=== PATIENT | female | born 2000 | race Hispanic/Latino ===

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

== ENCOUNTER 2023-04-04 09:09 | Day surgery (SDC) | payer MEDICAID ==
[2023-04-04] MEDS ORDERED: Acetaminophen 500 MG TAB ONE (09:45)
[2023-04-04] MEDS ORDERED: Iron Sucrose Complex 500 MG in Sodium Chloride 0.9% 250 ML 250 ML IVPB SCH (09:45)
[2023-04-04] MEDS ORDERED: Acetaminophen 500 MG TAB PO SCH (09:45)
== END 2023-04-04 15:08 | disposition home or self-care (01) ==
LOC: CSHSDC 09:09
PROVIDERS: ATTEND Family Medicine
DX: O99.019 Anemia complicating pregnancy, unspecified trimester (principal); D64.9 Anemia, unspecified; Z3A.00 Weeks of gestation of pregnancy not specified
CPT/HCPCS: J1756; J7050

== ENCOUNTER 2025-07-23 08:03 | Inpatient (IN) | payer MEDICAID, OTHER ==
[2025-07-23] MEDS ORDERED: Acetaminophen 500 MG TAB PO PRN (08:43)
[2025-07-23] MEDS ORDERED: Diphenoxylate HCl/Atropine Tablet PO PRN (08:43)
[2025-07-23] MEDS ORDERED: hydrALAZINE 20 MG/ML VIAL SLOW IVP PRN ×2 (08:43→12:18)
[2025-07-23] MEDS ORDERED: Methylergonovine 0.2 MG/ML VIAL IM PRN ×2 (08:43→12:18)
[2025-07-23] MEDS ORDERED: Lidocaine 1% (PF) 30 ML VIAL SC PRN (08:43)
[2025-07-23] MEDS ORDERED: Ibuprofen 800 MG TAB PO PRN (08:43)
[2025-07-23] MEDS ORDERED: Carboprost 250 MCG/ML AMP IM PRN (08:43)
[2025-07-23] MEDS ORDERED: Ondansetron PF 4 MG/2 ML Vial IVP PRN ×2 (08:43→12:18)
[2025-07-23] MEDS ORDERED: Tranexamic Acid 1,000 MG/10 ML VIAL IVP PRN (08:43)
[2025-07-23] MEDS ORDERED: Oxytocin 30 units/NS 500 ML 500 ML IV SCH ×3 (08:45→12:30)
[2025-07-23] MEDS ORDERED: Penicillin G Potassium 5 MILL.UNITS in Sodium Chloride 0.9% 100 ML IVPB SCH (09:00)
[2025-07-23 09:01] VITALS: BMI 25.7
[2025-07-23 09:05] LABS: Hematocrit 35.8 % (34.9-44.5); Hemoglobin 11.5 g/dL (12.0-15.5); Mean Corpuscular Hemoglobin 28.8 pg (27.0-33.0); Mean Corpuscular Volume 89.7 fL (81.6-98.3); Platelet Count 184 10x3/uL (150-450); Red Blood Cell (RBC) Count 3.99 10x6/uL (3.90-5.03); White Blood Cell (WBC) Count 9.16 10x3/uL (3.5-10.5)
[2025-07-23 09:46] LABS: Hep B Surf Ag - L&D Non-Reactive S/CO (NonReactive)
[2025-07-23 09:48] LABS: Syphilis Antibody Index 0.04 S/CO (<1.00 Non-Reactive)
[2025-07-23 09:49] LABS: HIV (1/2) Antibody/Antigen Non-Reactive (NonReactive); HIV 1/2 INDEX 0.08 S/CO (<1.00)
[2025-07-23] MEDS ORDERED: Boostrix 0.5 ML (Tdap) VIAL (>/=7 yrs of age) IM ONE (12:18)
[2025-07-23] MEDS ORDERED: Preparation H Ointment 28 GM TUBE PR PRN (12:18)
[2025-07-23] MEDS ORDERED: Methylergonovine 0.2 MG TAB PO PRN (12:18)
[2025-07-23] MEDS ORDERED: Benzocaine-Menthol 82.5 ML CAN TOP PRN (12:18)
[2025-07-23] MEDS ORDERED: Milk Of Magnesia 30 ML UDCUP PO PRN (12:18)
[2025-07-23] MEDS ORDERED: Bisacodyl 10 MG SUPP PR PRN (12:18)
[2025-07-23] MEDS ORDERED: Lanolin Ointment 7 GM TUBE TOP PRN (12:18)
[2025-07-23] MEDS ORDERED: diphenhydrAMINE 25 MG CAP PO PRN (12:18)
[2025-07-23] MEDS ORDERED: Penicillin G 2.5 MILL.units 2.5 MILL.UNITS in Premix 1 BAG IVPB SCH (13:00)
[2025-07-23] MEDS: Oxytocin 30 units/NS 500 ML 500 ML ONE (16:41)
[2025-07-23] MEDS: Penicillin G Potassium 5 MILL.UNITS VIAL ONE (16:44)
[2025-07-23] MEDS: Ferrous Sulfate 325 MG TAB PO SCH (16:59)
[2025-07-23] MEDS: Ibuprofen 800 MG TAB PO SCH (16:59)
[2025-07-24 12:29] VITALS: BP 105/52; TEMP 98.5
== END 2025-07-24 18:00 | disposition home or self-care (01) | DRG 807 ==
LOC: CSHLD/OP 08:03 → CSHLD 08:56 → CSHPP 15:40
PROVIDERS: ADMIT Family Medicine; ATTEND Family Medicine
PROC: 10E0XZZ Delivery of Products of Conception, External Approach (ICD-10-PCS; principal; 2025-07-23)
DX: O99.02 Anemia complicating childbirth (principal); Z37.0 Single live birth; O99.824 Streptococcus B carrier state complicating childbirth; Z3A.39 39 weeks gestation of pregnancy; Z79.899 Other long term (current) drug therapy
CPT/HCPCS: 85027; 86780; 86850; 86900; 86901; 87340; 87389; 99285; J2540; J2590